=== PATIENT | female | born 1975 ===

== ENCOUNTER 2024-07-07 09:17 | Outpatient (CLI) | payer BC, SELFPAY ==
--- NOTE | ~2024-07-07 | MR_ITS ---
EXAMINATION: MR cervical spine wo con DATE: 07/07/2024 10:25 INDICATION: Cervical radiculopathy TECHNIQUE: Magnetic resonance imaging (MRI) of the cervical spine was performed without intravenous c ontrast. Sequences included sagittal T2-weighted FSE, sagittal T2-weighted FS FSE, sagittal T1-weight ed FSE, axial MERGE and axial T2-weighted FSE. COMPARISON: None FINDINGS: There is magnetic field artifact centered at the C5-C6 which obscures the disc space and distorts por tions of the adjacent vertebral bodies and some of the immediately surrounding soft tissues. This cou ld potentially represent instrumentation for a C5-C6 anterior spinal fusion or a prosthetic C5-C6 dis c. No additional history provided or prior imaging for comparison. Bone alignment is normal. Normal b one marrow signal. The non obscured vertebral body heights are normal. Mild disc height loss and fabian lar fissures at C4-C5 and C6-C7. Cord signal intensity is normal. Visualized cervical soft tissues ar e unremarkable. The following disc levels are specifically discussed: C2-C3: The disc does not extend beyond the endplate margin. There is no uncovertebral joint osteoarth ritis. There is mild right and moderate left facet joint osteoarthritis. There is no neural foraminal stenosis. There is no central canal stenosis. C3-C4: The disc does not extend beyond the endplate margin. There is no uncovertebral joint osteoarth ritis. There is moderate bilateral facet joint osteoarthritis. There is minimal bilateral neural fora suzy stenosis. There is no central canal stenosis. C4-C5: Annular fissure and small central disc extrusion measuring 5 mm left to right and 3 mm AP whic h contacts but does not appear to deform the ventral surface of the cord. There is mild left uncovert ebral joint osteoarthritis. There is and moderate bilateral facet joint osteoarthritis. There is mild right neural foraminal stenosis. There is mild central canal stenosis. C5-C6: The disc space, uncovertebral joints and anterior aspect of the central canal and neural veronika daniel is obscured by magnetic field artifact. There is mild bilateral facet joint osteoarthritis. There is no evident stenosis of the obscured portions of the neural foramina and central canal. C6-C7: Annular fissure and small central to left paracentral disc extrusion which mildly indents the left ventral surface of the cord. There is mild right and moderate left uncovertebral joint osteoarth ritis. There is mild bilateral facet joint osteoarthritis. There is mild left neural foraminal stenos is. There is mild central canal stenosis. C7-T1: The disc does not extend beyond the endplate margin. There is no uncovertebral joint osteoarth ritis. There is mild bilateral facet joint osteoarthritis. There is no neural foraminal stenosis. The re is no central canal stenosis. IMPRESSION: 1. Metallic instrumentation centered at the C5-C6 disc space which obscures the immediately adjacent bones and soft tissues potentially related to either inspissation for anterior spinal fusion or a pro sthetic disc. Correlate with surgical history. 2. Mild cervical spondylosis with annular fissures and disc extrusions at C4-C5 and C6-C7. Reviewed, dictated and finalized at location A. IMPRESSION: 1. Metallic instrumentation centered at the C5-C6 disc space which obscures the immediately adjacent bones and soft tissues potentially related to either insp issation for anterior spinal fusion or a prosthetic disc. Correlate with surgic al history. 2. Mild cervical spondylosis with annular fissures and disc extrusions at C4-C5 and C6-C7.
--- NOTE | ~2024-07-07 | MR_ITS ---
EXAMINATION: MR shoulder LT wo con DATE: 07/07/2024 10:10 INDICATION: Left shoulder pain TECHNIQUE: Magnetic resonance imaging (MRI) of the left shoulder was performed without intravenous co ntrast. Sequences included axial PD-weighted FS FSE, coronal oblique PD-weighted FS FSE, coronal obli que T2-weighted FS FSE, sagittal PD-weighted FS FSE, and sagittal T1-weighted SE. COMPARISON: None. FINDINGS: Coracoacromial arch: The acromion undersurface is curved in morphology (type II). The coracoacromial ligament is normal. M inimal acromioclavicular osteoarthritis. Rotator cuff: Mild tendinopathy of the subscapularis tendon and at the conjoined portion of the supraspinatus and i nfraspinatus tendons. There is a tiny 2 mm intrasubstance tear along the footplate of the conjoined p ortion of the supraspinatus and infraspinatus tendons. The teres minor tendon is normal. Normal rotat or cuff muscle bulk and signal. Biceps tendon, glenoid labrum and glenohumeral cartilage: Long head of the biceps tendon is normal. There is mild partial-thickness cartilage loss along the po sterior glenoid. There is a shallow cleft at the posterior chondral labral junction extending from th e 8:00-9:00 position of the posterior glenoid tiny marginal osteophytes at this location at the base of the labrum. Labrum appears otherwise normal. Cartilage of the humeral head appears relatively pres erved. Fluid: Physiologic amount of fluid in the glenohumeral joint and biceps tendon sheath. No loose osteochondr al bodies. No abnormal increased fluid signal in the subacromial/subdeltoid bursa to suggest bursitis . Bones: Small elongated low signal intensity bone island at the anterior acromion. Bone marrow signal is othe rwise normal with no fracture or pathologic marrow replacing process. IMPRESSION: 1. Mild tendinopathy of the subscapularis tendon and the conjoined supraspinatus and infraspinatus te ndons, the latter with a tiny 2 mm intrasubstance tear along its greater tuberosity footplate. 2. Mild glenohumeral osteoarthritis with small shallow tear at the chondro labral junction at the pos terior, 8-9:00 position of the glenoid. Reviewed, dictated and finalized at location A. IMPRESSION: 1. Mild tendinopathy of the subscapularis tendon and the conjoined supraspinatu s and infraspinatus tendons, the latter with a tiny 2 mm intrasubstance tear al shannon its greater tuberosity footplate. 2. Mild glenohumeral osteoarthritis with small shallow tear at the chondro labr al junction at the posterior, 8-9:00 position of the glenoid.
== END 2024-07-07 09:18 | disposition home or self-care (01) ==
LOC: GOSHIMG 09:18
PROVIDERS: Visit Provider Family Medicine Sports Medicine
DX: M47.812 Spondylosis without myelopathy or radiculopathy, cervical region (principal); M75.82 Other shoulder lesions, left shoulder; M19.012 Primary osteoarthritis, left shoulder
CPT/HCPCS: 72141; 73221